=== PATIENT | male | born 1990 | race Two or more races ===

== ENCOUNTER 2017-08-01 17:33 | Emergency (ER) | payer SELFPAY ==
[~2017-08-01] VITALS: Ht 172.7 cm; Wt 89.8 kg
[2017-08-01] MEDS ORDERED: NKM (17:40)
--- NOTE | 2017-08-01 17:53 | Emergency Room Report ---
History of Present Illness General Chief Complaint: Abdominal Pain Source: Family Member Present Illness HPI 27-year-old male sent from primary care doctor steve for "evaluation". He complains of one day of central abdominal pain with bloating, nonradiating, no associated nausea or vomiting or diarrhea or fever or chills, or sick contacts. no foreign travel or history of previous abdominal surgery. Patient states no testing was done in doctor's office. No other medical problems. Allergies: Coded Allergies: No Known Allergies (Unverified , 08/01/17) Patient History Past Medical History: none Past Surgical History: none Pertinent Family History: none Social History: Denies: smoking, alcohol use, drug use Immunizations: UTD Reviewed Nursing Documentation: PMH: Agreed, PSxH: Agreed Nursing Documentation-PMH Past Medical History: No Stated History Review of Systems All Other Systems: negative except mentioned in HPI Physical Exam Vital Signs Date Time Temp Pulse Resp B/P (MAP) Pulse Ox O2 Delivery O2 Flow Rate FiO2 08/01/17 17:35 98.6 91 16 136/87 99 Room Air Sp02 EP Interpretation: reviewed, normal General Appearance: normal inspection, well appearing, no apparent distress, alert, GCS 15, non-toxic, other - very well-appearing, conversant, smiling Head: normocephalic, atraumatic Eyes: bilateral eye PERRL, bilateral eye EOMI ENT: normal ENT inspection, hearing grossly normal, normal voice Neck: normal inspection, full range of motion, supple, no bony tend Respiratory: normal inspection, lungs clear, normal breath sounds, no respiratory distress, no retraction, no wheezing Cardiovascular #1: regular rate, rhythm, no edema Gastrointestinal: normal inspection, normal bowel sounds, soft, no guarding, no hernia, other - Mild epigastric tenderness. No peritonitis Genitourinary: no CVA tenderness Musculoskeletal: normal inspection, back normal, normal range of motion, Liyah' s Sign negative Neurologic: normal inspection, alert, oriented x3, responsive, starting gate driver III-XII nml as tested, speech normal Psychiatric: normal inspection, judgement/insight normal, mood/affect normal Skin: normal inspection, normal color, no rash Medical Decision Making Diagnostic Impression: Primary Impression: Abdominal pain Qualified Codes: R10.33 - Periumbilical pain ER Course 27-year-old male with generalized abdominal pain Mild focal periumbilical tenderness Vital signs stable, afebrile No peritonitis on exam Labs showed leukocytosis, liver no LFT abnormalities Because of leukocytosis, the ct abdomen was done to evaluate for appendicitis However no acute findings on imaging Unlikely acute appendectomy or cholecystitis at this time, and normal vital signs, normal labs, and improved symptoms after GI cocktail, and normal CT low Suspicion for acute bacterial or surgical process at this time Likely viral gastroenteritis given 1 day of symptoms associated with bloating Rx pepcid Followup with Dr Tim ER course: Patient has remained stable during ED stay. Patient is to be discharged to home. Prescriptions given are pepcid Patient is instructed to follow up with their primary care doctor within 5 days. Strict return precautions discussed with patient such as fever, chills, worsening/severe pain, nausea, vomiting, which may indicate severe illness. Patient verbalizes understanding and agrees with plan. Please note that this Emergency Department Report was dictated using Learn with [employer] professor technology software, occasionally this can lead to erroneous entry secondary to interpretation by the dictation equipment EKG Diagnostic Results Rate: normal Rhythm: NSR ST Segments: no acute changes ASA given to the pt in ED: No Rhythm Strip Diag. Results EP Interpretation: yes Rate: 68 Rhythm: NSR, no PVC's, no ectopy Last Vital Signs Date Time Temp Pulse Resp B/P (MAP) Pulse Ox O2 Delivery O2 Flow Rate FiO2 08/01/17 17:35 98.6 91 16 136/87 99 Room Air Status: improved Disposition: HOME, SELF-CARE CHEPE GLOVER M.D. Aug 01, 2017 17:53
[2017-08-01 18:00] VITALS: BP 125/60
[2017-08-01] MEDS ORDERED: Lidocaine 2% Visc 15ml soln ORAL ONE (18:00)
[2017-08-01] MEDS ORDERED: Mylanta II UD 30ml ORAL ONE (18:00)
[2017-08-01] MEDS ORDERED: Metoclopramide 10mg/2ml Inj IVP ONE (18:00)
[2017-08-01 18:46] LABS: APPEARANCE,URINE CLEAR; BASOPHILS % (AUTO) 0.6 % (0.0-2.0); EOSINOPHILS % (AUTO) 0.1 % (0.0-3.0); KETONES,URINE NEGATIVE (NEGATIVE); LEUKOCYTE ESTERASE ,URINE NEGATIVE (NEGATIVE); LYMPHOCYTES % (AUTO) 14.1 % (20.0-45.0); MEAN CORPUSCULAR HEMOGLOBIN 28.9 PG (27.0-31.0); MEAN CORPUSCULAR HGB CONC 31.7 G/DL (32.0-36.0); MEAN CORPUSCULAR VOLUME 91 FL (80-99); MEAN PLATELET VOLUME 5.9 FL (6.5-10.1); MONOCYTES % (AUTO) 6.4 % (1.0-10.0); NEUTROPHILS % (AUTO) 78.9 % (45.0-75.0); NITRITE,URINE NEGATIVE (NEGATIVE); PH,URINE 6 (4.5-8.0); PLATELET COUNT 283 K/UL (150-450); PROTEIN,URINE NEGATIVE (NEGATIVE); RED BLOOD COUNT 5.14 M/UL (4.70-6.10); RED CELL DISTRIBUTION WIDTH 11.6 % (11.6-14.8); UROBILINOGEN,URINE NORMAL MG/DL (0.0-1.0); WHITE BLOOD COUNT 16.6 K/UL (4.8-10.8)
[2017-08-01 18:57] LABS: ANION GAP 12 mmol/L (5-15); CALCIUM 9.6 MG/DL (8.5-10.1); CARBON DIOXIDE 27 MMOL/L (21-32); CHLORIDE 99 MMOL/L (98-107); CREATININE 1.1 MG/DL (0.55-1.30); GLOMERULAR FILTRATION RATE > 60 mL/min (>60); POTASSIUM 4.1 MMOL/L (3.5-5.1); SODIUM 138 MMOL/L (136-145)
[2017-08-01 19:00] VITALS: BP 117/62
[2017-08-01 19:02] LABS: ALANINE AMINOTRANSFERASE 54 U/L (12-78); ALBUMIN/GLOBULIN RATIO 1.1 (1.0-2.7); ASPARTATE AMINO TRANSFERASE 30 U/L (15-37); LIPASE 149 U/L (73-393); TOTAL PROTEIN 8.5 G/DL (6.4-8.2)
[2017-08-01] MEDS ORDERED: PEPCID40 MG PO (19:46)
[2017-08-01 20:00] VITALS: BP 117/62
--- NOTE | 2017-08-04 11:00 | Cardiology Report ---
APPROVED REPORT EKG Measurement Heart [id number] Normal sinus rhythm Normal ECG
--- NOTE | 2017-08-04 11:01 | Diagnostic Imaging Report ---
Clinical Indication: Abdominal pain Technique: No oral contrast utilized, per emergency room physician request IV administration nonionic contrast. Venous phase spiral acquisition obtained through the abdomen and pelvis. Multiplanar reconstructions were generated. Total dose length product 726 mGycm. CTDIvol(s) 13 mGy. Dose reduction achieved using automated exposure control Comparison: None Findings: Normal appendix. No evidence of diverticulosis or diverticulitis. Prominent fluid-filled but not frankly dilated small bowel loops. No free or loculated intraperitoneal air or fluid is evident. Distal esophagus, stomach, duodenum are unremarkable. The liver is diffusely hypoattenuating, consistent with fatty change. No focal abnormality. Gallbladder, bile ducts, pancreas, spleen, adrenals, kidneys are unremarkable. No retroperitoneal mass or adenopathy. No pelvic mass or adenopathy. The included lung bases are clear. Bones are unremarkable. Impression: No acute abnormality Hepatic steatosis. This essentially agrees with the preliminary interpretation provided overnight by [facility]erad[facility] service with minor discrepancy. The CT scanner at [facility] is accredited by the [employer] and the scans are performed using protocols designed to limit radiation exposure to as low as reasonably achievable to attain images of sufficient resolution adequate for diagnostic evaluation.
== END 2017-08-01 20:00 | disposition home or self-care (01) ==
LOC: EMR 18:08
DX: R10.33 Periumbilical pain (principal)
CPT/HCPCS: 36415; 74177; 80053; 81003; 83605; 83690; 84484; 85025; 93005; 96374; 96375; 99284; J2765; Q9967; S0028